=== PATIENT | female | born 1960 | race Hispanic/Latino ===

== ENCOUNTER 2017-10-20 13:23 | Emergency (ER) | payer OTHER ==
[~2017-10-20] VITALS: Ht 165.1 cm; Wt 87.0 kg
[~2017-10-20 13:23] MED LIST: CLARITHROMYC500 M2 PO; DONNATA2 PO; EQ OMEPRAZOLE20 MG PO; FERROCITE PO; HYDROCHLOROT12.5 MG PO; LEVOTHYROXIN100 MCG PO; MECLIZINE25 MG PO; METHOCARBAMOL500 MG PO; METRONIDAZOL500 MG PO; NAPROXEN250 MG PO; NEXIUM40 M1 PO; OMEPRAZOLE10 MG PO; OMEPRAZOLE40 MG PO; TERBINAFINE250 MG PO; TRAMADOL HCL50 MG PO; ULTRAM50 M1 PO; ZOFRAN ODT4 MG PO; ZOFRAN4 MG/TAB PO
[2017-10-20] MEDS ORDERED: PROAIR HFA108 MCG/AC PO (13:51)
[2017-10-20] MEDS ORDERED: CHERATUSSIN PO (13:51)
[2017-10-20 14:18] LABS: URINE BILIRUBIN - DIPSTICK NEGATIVE (NEGATIVE); URINE BLOOD DIPSTICK NEGATIVE (NEGATIVE); URINE COLOR YELLOW; URINE GLUCOSE - DIPSTICK NEGATIVE (NEGATIVE); URINE KETONE NEGATIVE (NEGATIVE); URINE NITRITE - DIPSTICK NEGATIVE (Negative); URINE PROTEIN - DIPSTICK NEGATIVE (NEG-TRACE); URINE UROBILINOGEN - DIPSTICK 0.2 E.U./dL (0.2)
[2017-10-20 14:35] VITALS: BP 146/89
[2017-10-20 15:00] LABS: URINE CLARITY CLEAR; URINE LEUK ESTERASE SMALL (NEGATIVE)
[2017-10-20] MEDS ORDERED: ZPAK PO (15:02)
[2017-10-20] MEDS ORDERED: OMNICEF300 M1 PO (15:02)
[2017-10-20 15:08] LABS: URINE SQUAMOUS EPITHELIAL CELL FEW EPI/hpf (0-FEW)
== END 2017-10-20 15:15 | disposition home or self-care (01) | DRG 153 ==
LOC: ED 13:23
PROVIDERS: Family Medicine
DX: J06.9 Acute upper respiratory infection, unspecified (principal); N39.0 Urinary tract infection, site not specified

== ENCOUNTER 2019-06-03 07:18 | Emergency (ER) | payer MEDICAID ==
[~2019-06-03] VITALS: Ht 165.1 cm; Wt 75.0 kg
[~2019-06-03 07:18] MED LIST changes: +CHERATUSSIN PO; +OMNICEF300 M1 PO; +PROAIR HFA108 MCG/AC PO; +ZPAK PO
[2019-06-03 07:52] LABS: HEMATOCRIT 38.9 % (37.0-47.0); HEMOGLOBIN 12.6 g/dl (12.0-16.0); IMMATURE GRANULOCYTES 0.4 % (0.0-5.0); MEAN CELL VOLUME 81.2 fL CALC (80.0-100.0); MEAN CORPUSCULAR HGB 26.3 pG CALC (26.0-32.0); MEAN CORPUSCULAR HGB CONC 32.4 g/L CALC (32.0-36.0); NEUT# 8.17 thou/uL (2.00-7.15); RED BLOOD COUNT 4.79 mill/uL (4.20-5.60); RED CELL DISTRI WIDTH 20.4 % (11.5-15.5)
[2019-06-03 08:13] LABS: ALBUMIN 4.5 g/dL (3.2-5.0); ALKALINE PHOSPHATASE 92 u/l (38-126); ANION GAP 15 (6-22 (CALC)); BUN 13 mg/dL (7-17); BUN/CREATININE RATIO 18 (12-20 (CALC)); CARBON DIOXIDE 25 mmol/l (22-30); CHLORIDE 101 mmol/l (95-108); CREATININE 0.7 mg/dL (0.5-1.0); GFR > 60 ML/MIN (>=60 (CALC)); GFR FOR AFR.AMER. > 60 ML/MIN (>=60 (CALC)); LIPASE 68 u/l (23-300); POTASSIUM 4.1 mmol/l (3.5-5.1); SGOT/AST 25 u/l (14-36); SODIUM 136 mmol/l (137-146); TOTAL PROTEIN 7.7 g/dL (6.3-8.2)
[2019-06-03 08:16] LABS: BILIRUBIN, TOTAL 0.6 mg/dL (0.0-1.4)
[2019-06-03 10:51] LABS: URINE BILIRUBIN - DIPSTICK NEGATIVE (NEGATIVE); URINE BLOOD DIPSTICK NEGATIVE (NEGATIVE); URINE COLOR YELLOW; URINE GLUCOSE - DIPSTICK NEGATIVE (NEGATIVE); URINE KETONE NEGATIVE (NEGATIVE); URINE LEUK ESTERASE NEGATIVE (NEGATIVE); URINE NITRITE - DIPSTICK NEGATIVE (Negative); URINE PROTEIN - DIPSTICK NEGATIVE (NEG-TRACE); URINE UROBILINOGEN - DIPSTICK 0.2 E.U./dL (0.2)
[2019-06-03] MEDS ORDERED: ONDANSETRON4 MG PO (12:14)
[2019-06-03] MEDS ORDERED: TRAMADOL HYDROC50 MG PO (12:14)
[2019-06-03 12:21] VITALS: BP 121/71
== END 2019-06-03 12:26 | disposition home or self-care (01) ==
LOC: ED 07:18
PROVIDERS: Family Medicine
DX: K52.9 Noninfective gastroenteritis and colitis, unspecified (principal)

== ENCOUNTER 2021-01-19 11:57 | Emergency (ER) | payer SELFPAY ==
[~2021-01-19] VITALS: Ht 165.1 cm; Wt 89.0 kg
[~2021-01-19 11:57] MED LIST changes: +ONDANSETRON4 MG PO; +TRAMADOL HYDROC50 MG PO
[2021-01-19] MEDS ORDERED: ULTRAM50 MG PO (15:38)
[2021-01-19 15:56] VITALS: BP 112/89
[2021-01-19] MEDS ORDERED: OMEPRAZOLE DR20 MG PO (16:04)
[2021-01-19] MEDS ORDERED: FERROUS FUM324 MG PO (16:05)
[2021-01-19] MEDS ORDERED: VITAMIN D32000 UNI2 PO (16:05)
== END 2021-01-19 16:05 | disposition home or self-care (01) | DRG 554 ==
LOC: ED 11:57
DX: M17.11 Unilateral primary osteoarthritis, right knee (principal); K21.9 Gastro-esophageal reflux disease without esophagitis; E07.9 Disorder of thyroid, unspecified
CPT/HCPCS: L1830

== ENCOUNTER 2022-01-20 16:39 | Emergency (ER) | payer SELFPAY ==
[~2022-01-20] VITALS: Ht 165.1 cm; Wt 87.2 kg
[2022-01-20] VITALS (14 sets, daily range): BP systolic 87–143; BP diastolic 47–74
[~2022-01-20 16:39] MED LIST changes: +FERROUS FUM324 MG PO; +OMEPRAZOLE DR20 MG PO; +ULTRAM50 MG PO; +VITAMIN D32000 UNI2 PO
[2022-01-20 17:31] LABS: IMMATURE GRANULOCYTES 0.5 % (0.0-5.0); MEAN CORPUSCULAR HGB 27.6 pG CALC (26.0-32.0); MEAN CORPUSCULAR HGB CONC 30.8 g/dL CAL (32.0-36.0); NEUT# 8.28 thou/uL (2.00-7.15); RED BLOOD COUNT 3.62 mill/uL (4.20-5.60); RED CELL DISTRI WIDTH 16.8 % (11.5-15.5)
[2022-01-20 17:39] LABS: HEMATOCRIT 32.5 % (37.0-47.0); MEAN CELL VOLUME 89.8 fL CALC (80.0-100.0)
[2022-01-20 17:52] LABS: ALBUMIN 3.7 g/dL (3.2-5.0); ALKALINE PHOSPHATASE 71 u/l (38-126); ANION GAP 13 (6-22 (CALC)); BUN 24 mg/dL (7-17); BUN/CREATININE RATIO 33 (12-20 (CALC)); CARBON DIOXIDE 21 mmol/l (22-30); CHLORIDE 109 mmol/l (95-108); CREATININE 0.7 mg/dL (0.5-1.0); GFR FOR AFR.AMER. > 60 ML/MIN (>=60 (CALC)); GFR OTHER RACES > 60 ML/MIN (>=60 (CALC)); SGOT/AST 18 u/l (14-36); SODIUM 139 mmol/l (137-146); TOTAL PROTEIN 6.3 g/dL (6.3-8.2)
[2022-01-20 17:53] LABS: BILIRUBIN, TOTAL 0.3 mg/dL (0.0-1.4)
[2022-01-20 18:00] LABS: MYOGLOBIN 38 ng/mL (0 - 62)
[2022-01-20] MEDS ORDERED: VOLTAREN75 MG PO (19:41)
== END 2022-01-20 20:43 | disposition home or self-care (01) | DRG 313 ==
LOC: ED 16:39
PROVIDERS: Emergency Medicine
DX: R07.89 Other chest pain (principal); K21.9 Gastro-esophageal reflux disease without esophagitis
CPT/HCPCS: Q9967

== ENCOUNTER 2022-09-04 18:34 | Observation (INO) | payer SELFPAY ==
[~2022-09-04] VITALS: Ht 165.1 cm; Wt 84.2 kg
[2022-09-04] VITALS (18 sets, daily range): BP systolic 105–152; BP diastolic 46–78
[~2022-09-04 18:34] MED LIST changes: +VOLTAREN75 MG PO
--- NOTE | 2022-09-04 19:04 | NUR ---
PATIENT TO ROOM 6 VIA WHEELCHAIR
[2022-09-04 19:44] LABS: BASO% 0.5 % (0-3); EOS% 0.4 % (0-8); IMMATURE GRANULOCYTES 0.1 % (0.0-5.0); LYMPH% 18.8 % (15-41); MEAN CORPUSCULAR HGB 23.4 pG CALC (26.0-32.0); MEAN CORPUSCULAR HGB CONC 30.3 g/dL CAL (32.0-36.0); MONO% 7.2 % (2-13); NEUT# 5.53 thou/uL (2.00-7.15); RED BLOOD COUNT 2.95 mill/uL (4.20-5.60); RED CELL DISTRI WIDTH 15.4 % (11.5-15.5)
[2022-09-04 19:45] LABS: HEMATOCRIT 22.8 % (37.0-47.0); HEMOGLOBIN 6.9 g/dl (12.0-16.0); MEAN CELL VOLUME 77.3 fL CALC (80.0-100.0)
[2022-09-04 19:50] LABS: ALKALINE PHOSPHATASE 98 u/l (38-126); ANION GAP 10 (6-22 (CALC)); BILIRUBIN, TOTAL 0.3 mg/dL (0.02-1.3); BUN 24 mg/dL (7-17); BUN/CREATININE RATIO 28 (12-20 (CALC)); CARBON DIOXIDE 22 mmol/l (22-30); CHLORIDE 108 mmol/l (95-108); CREATININE 0.8 mg/dL (0.5-1.0); GFR FOR AFR.AMER. > 60 ML/MIN (>=60 (CALC)); GFR OTHER RACES > 60 ML/MIN (>=60 (CALC)); POTASSIUM 3.9 mmol/l (3.5-5.1); SGOT/AST 29 u/l (14-36); SODIUM 136 mmol/l (137-146); TOTAL PROTEIN 6.8 g/dL (6.3-8.2)
[2022-09-04 20:29] LABS: URINE BILIRUBIN - DIPSTICK NEGATIVE (NEGATIVE); URINE BLOOD DIPSTICK NEGATIVE (NEGATIVE); URINE COLOR YELLOW; URINE GLUCOSE - DIPSTICK NEGATIVE (NEGATIVE); URINE KETONE 40 mg/dL (NEGATIVE); URINE LEUK ESTERASE TRACE (NEGATIVE); URINE PROTEIN - DIPSTICK NEGATIVE (NEG-TRACE); URINE UROBILINOGEN - DIPSTICK 0.2 E.U./dL (0.2)
[2022-09-04 20:33] LABS: URINE NITRITE - DIPSTICK NEGATIVE (Negative)
--- NOTE | 2022-09-04 23:20 | NUR ---
PT ADMITTED TO MED SURG VIA STRETCHER WITH ER STAFF ASSIST PT ABLE TO STNAD AND AMBULATE TO BED IN ROOM WITH STRONG STEADY GAIT. PT IS ALERT AND OREINTED ENGLISH SPEAKING ONLY Mari CHAPMAN LPN ACTING TRANSLATER. PT CAME INTO E.R FOR ABD PAIN THAT STARTED THIS AM AND CONTINUED TO WORSEN SO PT CAME IN TO BE SEEN PT HAS HISTORY OF ANEMIA, AND TAKES IRON SUPPLEMENTS DAILY, DENIES AND BLACK TARRY STOOLS OR ACTIVE BLEEDS OF ANY KIND AT ALL. PT ALSO STATES SHE HAS NEVER HAD TO HAVE A BLOOD TRANSFUSION PT ALSO HAS NO OBJECTIONS AND CONSENT WAS OBTAINED IN ER. PT HAS IV ACCESS IN RAC, B/P STABLE PAIN CONTROLLED AT THIS TIME, PT STATES THEY MEDICATED HER INER WITH GOOD RELIEF. SKINIS WARM DRY AND INTACT WITH SMALL 1.5 IN ROUND BRUISE/ECCHYMOTIC ARE NOTED TO LEFT MID/UPPER BACK. PT STATES LAST BM WAS A LOOS BROWN MODERATE STOOL THIS AM. ORIENTED TO ROOM AND UNIT AND CALL FRANK WITH RETURN DEMONSTRATION OF CALL FRANK USAGE, PT ALSO EDUCATED REGARDING ORDER AND PLAN TO TRANSFUSE UNITS PRBC'S PT VERBALIZES UNDERSTANDING AND AGREEANCE. CALL FRANK WITHIN REACH, ATTENDING NURSE Mari CHAPMAN LPN AT BEDSIDE DURING ADMISSION PROCESS. WILL CONTINUE TO MONITOR.
--- NOTE | 2022-09-04 23:53 | NUR ---
PT RECEIVING BLOOD NOW; NO SIGNS OF REACTION. PT TOLERATING WELL. VS STABLE. SAFETY PRECAUTIONS IN PLACE WITH CALL LIGHT IN REACH.
[2022-09-05] VITALS (9 sets, daily range): BP systolic 101–119; BP diastolic 35–67
--- NOTE | 2022-09-05 00:25 | NUR ---
PT TOLERATING FIRST UNIT OF PRBCS W/O INCIDENT, VS REMAIN STABLE, RATE INCREASED TO PT TOLERANCE, CALLBELL WITHIN REACH. WILL CONTINUE TO MONITOR.
[2022-09-05] MEDS ORDERED: MELOXICAM15 MG PO (01:03)
[2022-09-05] MEDS ORDERED: VITAMIN D1.25 MG PO (01:05)
[2022-09-05] MEDS ORDERED: ALDACTONE25 MG PO (01:07)
--- NOTE | 2022-09-05 02:10 | NUR ---
PT JESSICA PAIN ON LEFT FLANK, LEVEL 8/10; ADMINISTERED PAIN MED PER EMAR. SAFETY PRECAUTION SIN PLACE WITH CALL LIGHT IN REACH.
--- NOTE | 2022-09-05 02:35 | NUR ---
SECOND UNIT OF RBC STARTED, NO SIGNS OF REACTION NOTED, VS STABLE, PT TOLERATING WELL.
--- NOTE | 2022-09-05 04:27 | NUR ---
TRANFUSION OF RBC COMPLETED @ 0423. VS STABLE, NO SIGNS OF DISTRESS NOTED. PT TOLERATED WELL. SAFETY PRECAUTIONS IN LACE WITH CALL LIGHT IN REACH.
--- NOTE | 2022-09-05 08:00 | NUR ---
RECEIVE REPORT FROM KERWIN MEYER.
--- NOTE | 2022-09-05 08:00 | NUR ---
Patient alert and oriented x3. It does not refer pain or disagreement at the time of this note.Patient is educated aboud medications and nursing plan for today. Pt refer understand . Safety and fall precautions in place. Call light within in reach.
--- NOTE | 2022-09-05 12:39 | NUR ---
PATIENT STABLE AT THIS TIME. RESTING IN BED. SAFETY AND FALL PRECAUTIONS IN PLACE. CALL LIGHT WITHIN IN REACH.
--- NOTE | 2022-09-05 19:56 | NUR ---
RECEIVED REPORT FROM YAIR MYERS. PT RESTING ON BED, HIGH FOWLERS; A&O X3, DANISH SPEAKING ONLY. FAMILY AT BEDSIDE. EVEN AND UNLABORED RESPIRATIONS; CLEAR LUNG SOUNDS UPON AUSCULTATION. IV SITE HEALTHY AND PATENT. ACTIVE BOWEL SOUNDS X4 QUADRANTS. NO DISTRESS NOTED. SAFETY PRECAUTIONS IN PLACE WITH CALL LIGHT IN REACH.
--- NOTE | 2022-09-06 00:20 | NUR ---
PT ASSISTED TO BATHROOM. PT BACK ON BED. STRAINED 400 MLS OF CLEAR, YELLOW URINE. PT C/O PAIN TO LEFT FLANK, LEVEL 8/10; ADMINISTERED PAIN MED PER EMAR. SAFETY PRECAUTIONS IN PLACE WITH CALL LIGHT IN REACH.
--- NOTE | 2022-09-06 03:59 | NUR ---
PT RESTING ON BED WITH EYES CLOSED, SUPINE POSITION. NO SIGNS OF DISTRESS OR PAIN NOTED. NO VOICED NEEDS AT THIS TIME. SAFETY PRECAUTIONS IN PLACE WITH CALL LIGHT IN REACH.
[2022-09-06 04:42] LABS: BASO% 0.4 % (0-3); EOS% 1.9 % (0-8); HEMATOCRIT 28.2 % (37.0-47.0); HEMOGLOBIN 8.6 g/dl (12.0-16.0); IMMATURE GRANULOCYTES 0.2 % (0.0-5.0); LYMPH% 14.6 % (15-41); MEAN CELL VOLUME 77.7 fL CALC (80.0-100.0); MEAN CORPUSCULAR HGB 23.7 pG CALC (26.0-32.0); MEAN CORPUSCULAR HGB CONC 30.5 g/dL CAL (32.0-36.0); MONO% 9.3 % (2-13); NEUT# 7.57 thou/uL (2.00-7.15); NEUT% 73.6 % (42-76); RED BLOOD COUNT 3.63 mill/uL (4.20-5.60); RED CELL DISTRI WIDTH 15.9 % (11.5-15.5)
[2022-09-06 04:45] VITALS: BP 93/41
[2022-09-06 04:52] LABS: ALBUMIN 3.6 g/dL (3.2-5.0); BILIRUBIN, TOTAL 0.4 mg/dL (0.02-1.3); CREATININE 1.4 mg/dL (0.5-1.0); POTASSIUM 4.2 mmol/l (3.5-5.1); TOTAL PROTEIN 6.3 g/dL (6.3-8.2)
[2022-09-06 06:38] VITALS: BP 113/48
--- NOTE | 2022-09-06 07:55 | NUR ---
PT RESTING IN HIGH FOWLERS POSITION. A/OX3 ASSESSMENT AND VS COMPLETED. HEART RHYTHM NORM RESPIRATIONS ON ROOM AIR. IV SITE NOTED. S.L PT DENIES ADDITIONAL NEEDS OTHER THAN BEVERAGE. ALL SAFETY PRECAUTIONS IN PLACE WITH CALL LIGHT IN REACH.
[2022-09-06 11:00] VITALS: BP 113/48
--- NOTE | 2022-09-06 12:05 | NUR ---
PT C/O NAUSEA PT TO BE PROVIDED WITH MEDICATIONS.
[2022-09-06 14:50] VITALS: BP 106/43
--- NOTE | 2022-09-06 16:43 | NUR ---
PT STATED HAS NOT HAD BM REQUEST FOR MIRALAX. PT PROVIDED WITH MIRALAX. PT DENIES ADDITIONAL NEEDS AT THE TIME.
[2022-09-06 19:32] VITALS: BP 112/62
--- NOTE | 2022-09-06 20:50 | NUR ---
RECEIVED REPORT FROM MITCH NOYOLA. PT SITTING ON BED HIGH FOWLERS. FAMILY AT BEDSIDE. PT A&O X3. EVEN AND UNLABORED RESPIRATIONS; CLEAR LUNG SOUNDS UPON AUSCULTATION. IN [place] HEALTHY AND PATENT. ACTIVE BOWEL SOUNDS X4 QUADRANTS. NO DISTRESS NOTED. PT DENIES PAIN AT THIS TIME. STOOL SAMPLE SENT TO LAB FOR OCCULT BLOOD COLE. SAFETY PRECAUTIONS IN PLACE WITH CALL LIGHT IN REACH.
--- NOTE | 2022-09-07 00:09 | NUR ---
PT RESTING ON BED WITH EYES CLOSED, SUPINE POSITION. NO DISTRESS OR PAIN NOTED. IV HEALTHY AND PATENT INFUSING FLUIDS PER ORDER. NO VOICED NEEDS AT THIS TIME. SAFETY PRECAUTIONS IN PLACE WITH CALL LIGHT IN REACH.
--- NOTE | 2022-09-07 03:55 | NUR ---
PT RESTING ON BED. NO DISTRESS OR PAIN NOTED. WARM BLANKET PROVIDED PER PT'S REQUEST. IV SITE HEALTHY AND PATENT, INFUSING FLUIDS PER ORDER. SAFETY PRECAUTIONS IN PLACE WITH CALL LIGHT IN REACH.
[2022-09-07 04:37] VITALS: BP 113/45
[2022-09-07 05:36] LABS: BASO% 0.6 % (0-3); EOS% 3.8 % (0-8); HEMATOCRIT 31.9 % (37.0-47.0); HEMOGLOBIN 9.6 g/dl (12.0-16.0); IMMATURE GRANULOCYTES 0.3 % (0.0-5.0); LYMPH% 19.1 % (15-41); MEAN CORPUSCULAR HGB 23.8 pG CALC (26.0-32.0); MEAN CORPUSCULAR HGB CONC 30.1 g/dL CAL (32.0-36.0); MONO% 10.9 % (2-13); NEUT# 4.31 thou/uL (2.00-7.15); NEUT% 65.3 % (42-76); RED BLOOD COUNT 4.04 mill/uL (4.20-5.60); RED CELL DISTRI WIDTH 16.4 % (11.5-15.5)
[2022-09-07 05:50] LABS: ALBUMIN 3.1 g/dL (3.2-5.0); ALKALINE PHOSPHATASE 66 u/l (38-126); ANION GAP 7 (6-22 (CALC)); BUN 16 mg/dL (7-17); BUN/CREATININE RATIO 22 (12-20 (CALC)); CARBON DIOXIDE 26 mmol/l (22-30); CHLORIDE 106 mmol/l (95-108); CREATININE 0.8 mg/dL (0.5-1.0); GFR FOR AFR.AMER. > 60 ML/MIN (>=60 (CALC)); GFR OTHER RACES > 60 ML/MIN (>=60 (CALC)); POTASSIUM 4.5 mmol/l (3.5-5.1); SGOT/AST 21 u/l (14-36); SODIUM 135 mmol/l (137-146); TOTAL PROTEIN 5.6 g/dL (6.3-8.2)
[2022-09-07 06:32] VITALS: BP 105/43
--- NOTE | 2022-09-07 07:26 | NUR ---
PT UP TO BATHROOM . PT A/OX3 ASSESSMENT AND VS COMPLETED. HEART RHYTHM NORM RESPIRATIONS ON ROOM AIR. IV SITE NOTED TO RFA.NS ON HOLD PT TO SHOWER. PT DENIES ADDITIONAL NEEDS AT THE TIME ALL SAFETY PRECAUTIONS IN PLACE WITH CALL LIGHT IN REACH.
[2022-09-07] MEDS ORDERED: OMEPRAZOLE DR20 MG PO (11:57)
--- NOTE | 2022-09-07 12:00 | NUR ---
PT TO BE DC TODAY.
--- NOTE | 2022-09-07 14:30 | NUR ---
Discharge instructions given. Patient verbalizes understanding of same. Discharged in stable condition via Wheelchair to Home with staff. All belongings sent with pt. IV REMOVED
== END 2022-09-07 14:35 | disposition home or self-care (01) | DRG 694 ==
LOC: ED 18:34 → ED-I 19:24 → ED 19:24 → ED-I 20:10 → ED 20:32 → MS2 20:33
PROVIDERS: Nurse Practitioner; Nurse Practitioner Family; ADMIT Internal Medicine; ATTEND Internal Medicine
PROC: 30233N1 Transfusion of Nonautologous Red Blood Cells into Peripheral Vein, Percutaneous Approach (ICD-10-PCS; principal; 2022-09-04)
PROC: 30233N1 Transfusion of Nonautologous Red Blood Cells into Peripheral Vein, Percutaneous Approach (ICD-10-PCS; 2022-09-05)
DX: N13.2 Hydronephrosis with renal and ureteral calculous obstruction (principal); D64.9 Anemia, unspecified; R19.5 Other fecal abnormalities; E03.9 Hypothyroidism, unspecified; K21.9 Gastro-esophageal reflux disease without esophagitis; K64.9 Unspecified hemorrhoids
CPT/HCPCS: G0378; J1756; P9016